=== PATIENT | female | born 1990 | race Caucasian/White ===

== ENCOUNTER 2020-12-14 08:39 | Emergency (ER) | payer SELFPAY ==
[2020-12-14 09:32] LABS: HEMOGLOBIN 14.1 gm/dl (12.3-15.3); RED BLOOD COUNT 4.58 M/UL (4.00-5.10); WHITE BLOOD COUNT 7.2 K/UL (4.5-11.0)
[2020-12-14 10:02] LABS: BUN/CREATININE RATIO 14 (0-10)
== END 2020-12-14 12:51 | disposition home or self-care (01) ==
LOC: ER1 08:39
PROVIDERS: Student in an Organized Health Care Education/Training Program
DX: R09.81 Nasal congestion (principal); R06.02 Shortness of breath; Z90.49 Acquired absence of other specified parts of digestive tract; Z20.822 Contact with and (suspected) exposure to COVID-19
CPT/HCPCS: 71045; 80053; 82550; 82553; 83874; 84484; 84702; 85025; 93005; 99285; U0002